=== PATIENT | male | born 1955 | race Caucasian/White ===

== ENCOUNTER 2019-11-09 21:04 | Emergency (ER) | payer OTHER ==
[~2019-11-09] VITALS: Ht 180.3 cm; Wt 106.1 kg
[2019-11-09 21:11] VITALS: BP 136/81
[2019-11-09 21:48] LABS: BILIRUBIN NEGATIVE (NEGATIVE); BLOOD NEGATIVE (NEGATIVE); CLARITY CLEAR (CLEAR); COLOR YELLOW (YELLOW); GLUCOSE NEGATIVE (NEGATIVE); KETONE NEGATIVE (NEGATIVE); LEUKO ESTERASE 1+ (NEGATIVE); NITRITE NEGATIVE (NEGATIVE); PH 7.5 (5.0-9.0); UROBILINOGEN 0.2 E.U./dl (0.2-1.0)
[2019-11-09 21:53] LABS: BACTERIA 1+; EPITHELIAL CELLS 0-2; RBC 0-2 rbc/hpf (0-2); WBC 21-30 wbc/hpf (0-5)
[2019-11-09] MEDS ORDERED: MACROBID100 M1 PO (23:24)
[2019-11-09] MEDS ORDERED: ROBAXIN-750750 MG PO (23:24)
[2019-11-09] MEDS ORDERED: PREDNISONE50 MG PO ×2 (23:42)
== END 2019-11-10 00:12 | disposition home or self-care (01) ==
LOC: ED 21:04
PROVIDERS: Nurse Practitioner Family
DX: N39.0 Urinary tract infection, site not specified (principal); M19.90 Unspecified osteoarthritis, unspecified site; E78.00 Pure hypercholesterolemia, unspecified; I10 Essential (primary) hypertension; E11.9 Type 2 diabetes mellitus without complications; Z88.0 Allergy status to penicillin

== ENCOUNTER 2021-08-04 18:30 | Emergency (ER) | payer OTHER ==
[~2021-08-04 18:30] MED LIST: MACROBID100 M1 PO; PREDNISONE50 MG PO; ROBAXIN-750750 MG PO
[2021-08-04 18:34] VITALS: BP 161/70
[2021-08-04 19:07] LABS: BASO # 0.1 10*3/uL (0.0-0.1); BASO % 0.7 % (0.0-1.0); EOS # 0.4 10*3/uL (0.0-0.4); EOS % 3.9 % (1.0-4.0); HEMATOCRIT 43.3 % (42.0-52.0); LYMPH # 1.9 10*3/uL (1.3-4.4); LYMPH % 19.5 % (27.0-41.0); MEAN CELL VOLUME 89.8 fl (80.0-94.0); MEAN CORPUSCULAR HGB 30.1 pg (27.0-31.0); MEAN CORPUSCULAR HGB CONC 33.5 g/dl (33.0-37.0); MEAN PLATELET VOLUME 10.2 fl (9.6-12.3); MONO # 0.8 10*3/uL (0.1-1.0); MONO % 8.6 % (3.0-9.0); NEUT # 6.4 10*3/uL (2.3-7.9); NEUT % 66.9 % (47.0-73.0); PLATELET COUNT AUTOMATED 150 10*3/uL (130-400); RED BLOOD COUNT 4.82 10*6/uL (4.50-5.90); RED CELL DISTRI WIDTH 12.6 % (0-14.5); WHITE BLOOD COUNT 9.5 10*3/uL (4.8-10.8)
[2021-08-04 19:18] LABS: ACT PARTIAL THROMBO TIME 26.6 SECONDS (20.0-32.1)
[2021-08-04 20:19] LABS: ALBUMIN 3.3 gm/dl (3.1-4.5); ALKALINE PHOSPHATASE 99 U/L (45-117); BUN 10 mg/dl (7-24); CHLORIDE 108 mmol/L (98-107); CREATININE 1.12 mg/dL (0.70-1.30); POTASSIUM 4.3 mmol/L (3.5-5.1); SGOT/AST 20 IU/L (3-35); SGPT/ALT 39 U/L (12-78); SODIUM 140 mmol/L (136-145); TOTAL PROTEIN 6.8 gm/dL (6.4-8.2)
[2021-08-04] MEDS ORDERED: NAPROXEN250 MG PO (20:53)
== END 2021-08-04 21:42 | disposition home or self-care (01) ==
LOC: ED 18:30
PROVIDERS: Emergency Medicine
DX: S43.101A Unspecified dislocation of right acromioclavicular joint, initial encounter (principal); Z88.0 Allergy status to penicillin; Z98.890 Other specified postprocedural states; W06.XXXA Fall from bed, initial encounter; Y93.89 Activity, other specified; Y92.89 Other specified places as the place of occurrence of the external cause; Y99.8 Other external cause status